=== PATIENT | female | born 1985 | race Caucasian/White ===

== ENCOUNTER 2020-08-03 16:07 | Outpatient (CLI) | payer OTHER ==
[2020-08-03] MEDS ORDERED: SYNTHROID200 MCG PO (17:27)
[2020-08-03] MEDS ORDERED: PRENATAL CAPLE1 EAC1 PO (17:28)
[2020-08-03] MEDS ORDERED: CHILDREN'S ASPI81 MG PO (17:28)
== END 2020-08-03 20:42 | disposition home or self-care (01) ==
LOC: OBS/DEL 16:07
PROVIDERS: ATTEND Obstetrics & Gynecology
DX: O99.113 Other diseases of the blood and blood-forming organs and certain disorders involving the immune mechanism complicating pregnancy, third trimester (principal); D69.49 Other primary thrombocytopenia; Z3A.32 32 weeks gestation of pregnancy; Z20.828 Contact with and (suspected) exposure to other viral communicable diseases